=== PATIENT | male | born 1975 ===

== ENCOUNTER 2024-12-20 06:26 | Day surgery (SDC) | payer OTHER, SELFPAY | END 2024-12-20 14:15 | disposition home or self-care (01) | LOC: GI 06:26 | PROVIDERS: ATTENDING PHYSICIAN Internal Medicine Gastroenterology; FAMILY PHYSICIAN Family Medicine | DX: Z12.11 Encounter for screening for malignant neoplasm of colon (principal); K64.9 Unspecified hemorrhoids; K63.5 Polyp of colon | CPT/HCPCS: 45380; 88305 ==